=== PATIENT | male | born 1995 | race Caucasian/White ===

== ENCOUNTER → 2021-06-04 11:27 | Outpatient (CLI) | payer MEDICAID, SELFPAY | PROVIDERS: Visit Provider Nurse Practitioner | DX: Z20.822 Contact with and (suspected) exposure to COVID-19 (principal) | CPT/HCPCS: C9803; U0003; U0005 ==

== ENCOUNTER 2025-05-20 16:04 | Emergency (ER) | payer MEDICAID, SELFPAY ==
--- OUTSIDE RECORDS SUMMARY | 1999-05-13 | XMS_ITS | Encounter Summary ---
Author Organization [facility] Address [address] [place] [address] Care Team Providers Care Cargo Station Worker Name Role Phone Unavailable Primary Care Provider Unavailabl e Encounter Details Date Type Department Care Team (Late st Contact Info) Description 05/13/1999 Hospital Encounter [facility] Division of Cardiology [address] [place] [phone] Social History Tobacco Use Types Packs/Day Years Used Date Smoking Tobacco: Never Assessed Sex and Gender Information Value Date Recorded Sex Assigned at Not on file Legal Sex Male 5:11 AM EST Gender Identity Not on file Sexual Orientation Not on file documented as of this encounter Plan of Treatment Not on file documented as of this encounter Visit Diagnoses Not on filedocumented in this encounter
--- OUTSIDE RECORDS SUMMARY | 2001-01-26 23:00 | XMS_ITS | Encounter Summary ---
Author Organization [facility] Address [address] [place] [address] Care Team Providers Care Contracts Representative Name Role Phone Unavailable Primary Care Provider Unavailabl e Encounter Details Date Type Department Care Team (Late st Contact Info) Description 01/27/2001 Hospital Encounter [facility] Division of Pediatric Otolaryngology [address] [place] [phone] Social History Tobacco Use Types Packs/Day [...]
[2025-05-20 16:09] VITALS: BP 131/100; PULSE 100; RESP 20; TEMP 36.7; O2SAT 97; BMI 41.5
--- OUTSIDE RECORDS SUMMARY | 2025-05-20 16:10 | XMS_ITS | Encounter Summary ---
Author Organization [place] [address] Care Team Providers Care Automatic Dispenser Mechanic Name Role Phone Unavailable Primary Care Provider Unavailabl e Reason for Visit * Reason Onset Date Comments Appointment Needed 02/21/2025 New pt appt, est care/ adv controlled/ no bal Encounter Details Date Type Department Care Team (Late st Contact Info) Description 02/21/2025 Telephone [facility] [address] [place] [address] Alyssa Ashraf, CDL TEAM TRUCK DRIVER [address] [place] [address] Appointment Needed (New pt appt, est care/ adv controlled/ no bal ) Social History Tobacco Use Types Packs/Day Years Used Date Smoking Tobacco: Never Smokeless Tobacco: Never Alcohol Use Standard Drinks/Week Comments No 0 (1 standard drink = 0.6 oz pur e alcohol) PHQ-2 Answer Date Recorded PHQ-2 Score 0 10/10/2018 Sexually Active Control Partners Comments Never Sex and Gender Information Value Date Recorded Sex Assigned at Not on file Legal Sex Male 5:02 PM EDT Gender Identity Not on file Sexual Orientation Not on file documented as of this encounter Functional Status * Is the person deaf or does he/she have serious difficulty hearing? Answer Date of Assessment Author No 06/26/2019 5:35 PM EST Mikey Olvera, PHOTOGRAPHIC PROCESS WORKER * Is the person blind or does he/she have serious difficulty seeing even when wearing glasses? Answer Date of Assessment Author No 06/26/2019 5:35 PM EST Wade, Da rcie, PHOTOGRAPHIC PROCESS WORKER * Does this person have serious difficulty walking or climbing stairs? Answer Date of Assessment Author No 06/26/2019 5:35 PM EST Wade, Da rcie, PHOTOGRAPHIC PROCESS WORKER * Does this person have difficulty dressing or bathing? Answer Date of Assessment Author No 06/26/2019 5:35 PM EST Wade, Da rcie, PHOTOGRAPHIC PROCESS WORKER * Because of a physical, mental or emotional condition, does this person have difficulty doing errands alone such as visiting a doctor's office or shopping? Answer Date of Assessment Author No 06/26/2019 5:35 PM EST Wade, Da rcie, PHOTOGRAPHIC PROCESS WORKER documented as of this encounter Mental Status * Because of a physical, mental or emotional condition, does this person have serious difficulty concentrating, remembering or making decisions? Answer Entry Date Author No 06/26/2019 5:35 PM EST Wade, Da rcie, PHOTOGRAPHIC PROCESS WORKER documented in this encounter Miscellaneous Notes * Telephone Encounter - Davida Carrera RMA - 02/21/2025 2:25 PM EDT Appt scheduled * Telephone Encounter - Mo Keating - 02/21/2025 2:14 PM EDT Select the most appropriate reason for this telephone message: Appointment Needed Who is Calling: Patient Return Method of Communication: Phone Call Provider Preference: Any Available Type of Appt Needed: New Patient Detailed Reason for Appt: New pt appt, est care/ adv controlled/ no bal Is the caller rescheduling an existing appointment: No Requested Timeframe: Today Reason Scheduling Assistance is Needed: -no appts available with provider preference in time frame needed Additional Information: please advise pt documented in this encounter Plan of Treatment Not on file documented as of this encounter Goals Goal Patient Goal Type Associated Problems Recent Progress Patient-Stated? Author Maintain a healthy diet, exercise regularly and maintain an ideal body weight General No Mo Moya MD documented as of this encounter Visit Diagnoses Not on filedocumented in this encounter
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
--- OUTSIDE RECORDS SUMMARY | 2025-05-20 16:10 | XMS_ITS | Clinical Summary ---
[facility] Address [address] [address] Phone Care Team Providers Care Cold Mill Supervisor Name Role Phone Sanford DMD, Thelma Unavailable Conditions or Problems No information available. Medications Medication Instructions Start Date Stop Date Generic Name NDC Provider Augmentin 500-125 mg tablet Take 1 tablet by mouth twice a day 8 amoxicillin-pot clavulanate [id number] Thelma Sanford DMD Medications Administered No information available. Allergies, Adverse Reactions, Alerts Observed no known allergies at Results No information available. Plan of Care No information available. Procedures No information available. Vital Signs No information available. Immunizations No information available. Advance Directives No information available.
--- OUTSIDE RECORDS SUMMARY | 2025-05-20 16:10 | XMS_ITS | Clinical Summary ---
Author Organization [facility] Address [address] [place] [address] Care Team Providers Care Ambulatory Care Nurse Name Role Phone Unknown Pcp Or Referral, [facility] Primary Care Prov ider Unavailable Source Comments [facility] is fully rolled out with thefollowing exceptions:General Clinical Research [facility] Allergies No known active allergies Medications ibuprofen (MOTRIN) 100 MG/5ML suspension Take 40 mL by mouth every 6 hours as needed for Pain. 480ml 3 12/05/2009 Active Social History Tobacco Use Types Packs/Day Years Used Date Smoking Tobacco: Never Assessed Sex and Gender Information Value Date Recorded Sex Assigned at Not on file Legal Sex Male 5:11 AM EST Gender Identity Not on file Sexual Orientation Not on file Last Filed Vital Signs Vital Sign Reading Time Taken Comments Blood Pressure 144/72 12/05/2009 3:55 PM EDT Pulse 93 12/05/2009 3:55 PM EDT Temperature 36.6 C (97.9 F) 12/05/2009 2:41 PM EDT Respiratory Rate 20 12/05/2009 3:55 PM EDT Oxygen Saturation 99% 12/05/2009 3:55 PM EDT Inhaled Oxygen Concentration - - Weight 103.4 kg (227 lb 15.3 oz) 12/05/2009 2:41 PM EDT Height - - Body Mass Index - - Plan of Treatment Health Maintenance Due Date Last Done Comments MMR IMMUNIZATION (1 of 1 - S tandard series) 02/07/1996 DTAP/Tdap/Td IMMUNIZATION (1 - Tdap) 2002 Yearly Physical Ages 3-18+ 2006 VARICELLA IMMUNIZATION (1 of 2 - 13+ 2-dose series) 02/07/2008 HEPATITIS B IMMUNIZATION (1 of 3 - 19+ 3-dose series) 2014 AMB SEASONAL FLU VACCINE (#1) 01/20/2025 COVID-19 Vaccine (1 - 2024-2 6 season) 2025 HIB IMMUNIZATION Aged Out No longer e ligible based on patient's age to complete this topic HPV IMMUNIZATION (No Doses Required) Completed IPV IMMUNIZATION Aged Out No longer e ligible based on patient's age to complete this topic MCV4 IMMUNIZATION Aged Out No longer eligible based on patient's age to complete this topic MENINGOCOCCAL B VACCINE Aged Out No l onger eligible based on patient's age to complete this topic PNEUMOCOCCAL IMMUNIZATION Aged Out No longer eligible based on patient's age to complete this topic Respiratory Syncytial Virus (RSV) <20mo Aged Out No longer eligible b ased on patient's age to complete this topic Insurance ED [facility] Care Teams Ambulatory Care Nurse Relationship Specialty Start Date End Date Unknown Pcp Or Referral, [facility] PCP - General 12/05/09
[2025-05-20 16:18] LABS: Hematocrit 47.4 % (42.0-52.0); Hemoglobin 16.3 g/dL (14.1-18.0); Immature Granulocytes % 0.5 %; Mean Corpuscular HGB Conc 34.4 g/dL (31.8-35.4); Mean Corpuscular Hemoglobin 29.6 pg (27.0-31.2); Mean Corpuscular Volume 86.0 fl (80-94); Nucleated Red Blood Cells % 0 %; Platelet Count 346 K/mm3 (142-424); Red Blood Count 5.51 M/mm3 (4.60-6.20); Red Cell Distribution Width-SD 39.8 fL; White Blood Count 13.4 K/mm3 (4.8-10.8)
[2025-05-20] MEDS: 0.9 % SODIUM CHLORIDE 1000ML 1,000 ML 999 ML IV (16:21)
[2025-05-20] MEDS: KETOROLAC 15MG/ML VIAL 15 MG IV (16:22)
[2025-05-20] MEDS: ONDANSETRON 4MG/2ML VIAL 4 MG IV (16:22)
--- NOTE | 2025-05-20 16:23 | ED_ITS ---
<Statement entered by Martha Evangelista MD - 05/20/25 23:18> I was consulted by the EMILY, and we discussed the complexity of the problems being addressed. I approved the treatment and management plan for this patient's care in the emergency department, thus performing a substantive portion of the medical decision making. Martha Evangelista MD, [place], FACEP Discharge Plan Disposition Patient Disposition: Home, Self-Care Condition: Good Prescriptions Prescriptions: New ondansetron 4 mg tablet,disintegrating 4 mg PO Q6H PRN (Reason: nausea and vomiting) Qty: 12 0RF Referrals Follow up/Referrals: Cornelius Maharaj APRN [Primary Care Provider, Family Practice] - See instructions Activity Restrictions/Add. Instructions Additional Instructions/Restrictions: You were evaluated on an emergency basis. It is very important that you follow- up with your primary care provider and any specialist who we discussed within the next 2 days in order to better assess your health more comprehensively. For example, incidental findings on imaging or laboratory results that were performed today may be discovered, which do not require immediate medical care, but may impact your health in the future. If your symptoms worsen or persist, please return to the emergency department immediately for reassessment. Take all medications as prescribed. In queue for allowing me to participate in your health care, and I hope you feel better soon. Clinical Impressions Clinical Impression: Viral gastroenteritis Instructions Patient Instructions: Viral Gastroenteritis Print Language Print Language: Bolivian Discharge ED Provider: Martha Evangelista General Adult HPI General Chief complaint: Abdominal Pain Stated complaint: nausea, vomiting, diarrhea Time Seen by Provider: 05/20/25 16:11 Mode of Arrival: EMS Source of Information: Patient Description of Symptoms (Recalled from ER Triage Doc. by RN): patient presents from [facility] for n/v/d that started this morning. patient was initially at [facility] being seen for his symptoms but they thought he needed to be evaluated from an ED standpoint. patients symptoms started this morning. rating pain 6/10 in lower abdomen. History of Present Illness HPI narrative: 30-year-old male presents emergency department with complaints of nausea, vomiting, diarrhea since this morning. he denies fevers. He was seen at [facility] initially for his symptoms however they sent him to ER for evaluation. Patient states he has not take any medication for symptom relief prior to arrival. He denies any past medical history or surgical procedures on his abdomen. Related Data Previous Rx's ?Medication ?Instructions ?Recorded ondansetron 4 mg disintegrating 4 mg PO Q6H PRN nausea and 05/20/25 tablet vomiting #12 tabs Allergies Allergy/AdvReac Type Severity Reaction Status Date / Time No Known Allergies Allergy Verified 05/20/25 14:54 [facility] Disclaimer: The information contained in this section may have been updated after the patient was seen, as this information can be updated by other users. Medical History Nausea vomiting and diarrhea Head congestion Left ear pain Nasal congestion Social History Smoking Status: Never smoker alcohol intake: never current occupational status: employed Travel in the last 8 weeks?: None Have you lived/traveled outside US in past 30 days?: No Contact w/someone who lives/traveled outside US past 30 days?: No Exposure to someone with infectious disease in past 14 days?: No Do you have a fever (greater than 100.4 F or 38 C)?: No Have you tested positive for COVID-19?: No Exposed to someone with COVID-19 in past 14 days?: No Do you have a sore throat?: No Do you have a cough?: No Do you have any weakness?: No Do you have any diarrhea?: Yes Are you experiencing any unusual bleeding?: No Do you have any muscle aches/pain?: No Do you have any abdominal pain?: No Are you experiencing loss of taste or smell?: No ROS Obtained: Yes other Gastrointestinal Gastrointestingal: Reports diarrhea, nausea and vomiting Physical Exam Narrative Physical exam: General: Awake, aware, in no acute distress HEENT: Normocephalic, no evidence of trauma CV: RRR, no murmurs, rubs, or gallops Pulm: CTA bilaterally with no rhonchi, rales, wheezes ABD: Nontender, no swelling, guarding, or rebound tenderness Psych, appropriate mood and affect General General appearance: alert Respiratory Respiratory exam: Present normal lung sounds bilaterally Cardiovascular Cardiovascular exam: Present regular rate Neurological Exam Neurological exam: Present alert Medical Decision Making Medical Records Screening: Per USPSTF and CDC recommendations, given the prevalence of disease in our region, it is our hospital?s policy to screen for HIV and viral Hepatitis for all patients aged 18 and over and those with ongoing risk factors. Ke Inquiry Pt receiving controlled substance: No Vital Signs: 05/20/25 16:09 Temperature 98.1 F Temperature Source Oral Pulse Rate [Right Radial] 100 H Respiratory Rate 20 Blood Pressure [Right Arm] 131/100 H Blood Pressure Mean [Right Arm] 110 Blood Pressure Source [Right Arm] Automatic Cuff Blood Pressure Position [Right Arm] Sitting 02 Sat by Pulse Oximetry 97 Oxygen Delivery Method Room Air Lab Data Lab Results 05/20/25 15:55: WBC 13.4 H, RBC 5.51, Hgb 16.3, Hct 47.4, MCV 86.0, MCH 29.6, MCHC 34.4, RDW 12.8, Plt Count 346, MPV 10.1, Neut % (Auto) 76.5, Lymph % (Auto) 17.4, [place] % (Auto) 5.1, Eos % (Auto) 0.4, Baso % (Auto) 0.1, Neut # (Auto) 10.2 H, Lymph # (Auto) 2.3, [place] # (Auto) 0.7, Eos # (Auto) 0.1, Baso # (Auto) 0.0, Sodium 138, Potassium 4.0, Chloride 103, Carbon Dioxide 27, Anion Gap 12.0, BUN 21 H, Creatinine 0.90, Estimated Creat Clear 104, Estimated GFR 99, Est GFR ( Amer) 120, Glucose 106 H, Calcium 9.7, Magnesium 1.9, Total Bilirubin 0.9, AST 34, ALT 60, Alkaline Phosphatase 109, Total Protein 8.3 H, Albumin 5.1 H, Globulin 3.2, Albumin/Globulin Ratio 1.6, Lipase 56 05/20/25 16:48: Urine Color Yellow, Urine Appearance Sl cloudy, Urine pH 6.0, Ur Specific [place] 1.025, Urine Protein Negative, Urine Glucose (UA) Negative, Urine Ketones Trace, Urine Blood Negative, Urine Nitrate Negative, Urine Bilirubin Negative, Urine Urobilinogen 0.2, Ur Leukocyte Esterase Negative, Urine RBC 3-5, Urine WBC 20-50, Ur Squamous Epith Cells 3-5, Urine Bacteria 4+, Urine Mucus 4+ 05/20/25 15:55 05/20/25 15:55 Orders (Tests/Meds): ED MEDICATIONS Discontinued Medications Generic Name Dose Route Start Last Admin Trade Name Mona PRN Reason Stop Dose Admin Sodium Chloride 1,000 mls @ 999 mls/hr 05/20/25 16:13 05/20/25 16:21 Sod Chlor 0.9% 1000ml Bag IV 05/20/25 17:13 999 mls/hr .Q1H1M ONE Administration Ketorolac Tromethamine 15 mg 05/20/25 16:13 05/20/25 16:22 Ketorolac 15mg/Ml Vial IV 05/20/25 16:14 15 mg ONCE ONE Administration Ondansetron HCl 4 mg 05/20/25 16:13 05/20/25 16:22 Ondansetron 4mg/2ml Vial IV 05/20/25 16:14 4 mg ONCE ONE Administration ORDERS Category Date Time Status CBC w/Auto Diff [Complete Blood Count Auto Diff] Stat Lab 05/20/25 15:55 Completed CMP [Comprehensive Metabolic Panel] Stat Lab 05/20/25 15:55 Completed Lipase Stat Lab 05/20/25 15:55 Completed Magnesium Stat Lab 05/20/25 15:55 Completed Urinalysis and Microscopic Stat Lab 05/20/25 16:48 Completed Urine Culture Stat Micro 05/20/25 16:48 Received Medical Decision Narrative: Initial impression of presenting illness: 30-year-old male presents emergency department via EMS at the request of express care for evaluation of nausea, vomiting, diarrhea that started this morning. Patient denies fevers. He denies any past medical history or surgical procedures on his abdomen. He is not taking medication for symptom relief prior to arrival. Differential diagnosis includes but is not limited to: Gastritis, gastroenteritis, pancreatitis, gallbladder disease Patient arrives hemodynamically stable, afebrile, without respiratory distress with vital signs interpreted by myself. Initial physical exam unremarkable. Abdomen is soft nontender with normal active bowel sounds. Patient appears to be resting comfortably in his room. Initial diagnostic plan: Laboratory studies including urinalysis, normal saline bolus for hydration, Zofran for nausea, Toradol for pain control Results from initial plan were reviewed and interpreted by myself, pertinent positives include: White blood cell count 13.4 however rest of laboratory studies were nonactionable. Interventions in the ED: Patient was given normal saline bolus for hydration as well as Zofran for nausea and Toradol for pain control. Patient was made aware of the results and the findings, upon reevaluation patient has remained stable throughout stay, symptoms have improved. Upon reevaluation patient is resting in his room. Patient is tolerating p.o. without difficulty. He has not had any episodes of vomiting during his ER stay. Disposition: Reviewed finding today's workup with patient informed no acute abnormalities were noted. Informed him of his symptoms are consistent with a viral gastroenteritis. Advised him we will give a prescription for Zofran to help with his nausea. Recommended that he increase his fluid intake and rest and consume a bland diet slowly advance as tolerated. Directed him to return to the emergency department any new or worsening symptoms. Also advised patient that his blood pressure has been running elevated while here. Recommend that he monitor that at home and speak with his primary care provider if he has noticed it is consistently running high. Patient was agreeable to plan of care. Patient made aware of findings and had a detailed discussion with symptomatic care and return precautions, patient voiced understanding. Critical Care Critical Care Time Critical Care Time: No
[2025-05-20 16:24] LABS: Alanine Aminotransferase 60 U/L (12-78); Albumin Level 5.1 g/dl (3.5-5.0); Albumin/Globulin Ratio 1.6 (1.1-1.8); Alkaline Phosphatase 109 U/L (38-126); Anion Gap 12.0 mEq/L (5-15); Aspartate Amino Transferase 34 U/L (17-59); Bilirubin,Total 0.9 mg/dl (0.2-1.3); Blood Urea Nitrogen 21 mg/dl (9-20); Calcium 9.7 mg/dl (8.4-10.2); Carbon Dioxide 27 mmol/L (22.0-30.0); Chloride 103 mmol/L (98-107); Creatinine Clearance Estimated 104 mL/min (50-200); Creatinine,Serum 0.90 mg/dl (0.66-1.25); Estimated Glomerular Filt Rate 99 ml/min (>60); GFR (African American) 120 ML/MIN (>60); Globulin 3.2 g/dL (1.3-3.2); Glucose 106 mg/dl (74-100); Lipase 56 U/L (23-300); Magnesium 1.9 mg/dl (1.6-2.3); Potassium 4.0 mmoL/L (3.5-5.1); Sodium 138 mmol/L (136-145); Total Protein,Serum 8.3 g/dl (6.3-8.2)
--- NOTE | 2025-05-20 16:27 | PC.NURSE ---
patient educated on need for urine sample. patient unable to obtain at this time.
[2025-05-20 16:56] LABS: Bilirubin,Urine Negative (Negative); Color,Urine YELLOW (Yellow); Glucose,Urine (UA) Negative (Negative); Ketones,Urine TRACE (Negative); Leukocyte Esterase,Urine Negative (Negative); Microscopic, Urine URINE MICROSCOPIC (MICROSCOPIC); PH,Urine 6.0 (5.0-8.5); Protein,Urine Negative (Negative); Specific Gravity, Urine 1.025 (1.005-1.030); Urobilinogen,Urine 0.2 EU/dl (0.2)
[2025-05-20 17:29] LABS: WBC,Urine 20-50 #/hpf (0-3)
[2025-05-20 17:30] LABS: Bacteria,Urine 4+ /lpf; Mucus,Urine 4+ /lpf
[2025-05-20 18:28] VITALS: BP 142/89; PULSE 103; RESP 18; TEMP 36.7; O2SAT 99
--- NOTE | 2025-05-24 05:14 | PC.NURSE ---
Positive culture results reviewed by Dr Huitron. New orders received will notify patient.
--- NOTE | 2025-05-25 06:53 | PC.NURSE ---
Stop Bactrim and start Aug per Pharmacy. Called in to [facility]. Msg left for pt.
--- NOTE | 2025-05-25 08:37 | PC.NURSE ---
Attempt made to call pt about his urine culture. I was unable to reach him.
--- NOTE | 2025-05-25 17:23 | PC.NURSE ---
Unsuccessful attempt made to call the pt about his final urine culture.
== END 2025-05-20 18:31 | disposition home or self-care (01) ==
PROVIDERS: Nurse Practitioner Family; Emergency Provider Student in an Organized Health Care Education/Training Program; PCP Nurse Practitioner Family
DX: R10.30 Lower abdominal pain, unspecified (principal); K52.9 Noninfective gastroenteritis and colitis, unspecified; N39.0 Urinary tract infection, site not specified; R11.2 Nausea with vomiting, unspecified; B95.4 Other streptococcus as the cause of diseases classified elsewhere
CPT/HCPCS: 80053; 81001; 83690; 83735; 85025; 87086; 87088; 87186; 96361; 96374; 96375; 99284; J1885; J2405; J7030